=== PATIENT | female | born 1960 | race Caucasian/White ===

== ENCOUNTER → 2023-08-29 10:56 | Outpatient (REF) | payer OTHER, SELFPAY | LOC: MRI 3T 10:56 | PROVIDERS: ATTENDING PHYSICIAN Orthopaedic Surgery Hand Surgery; FAMILY PHYSICIAN Family Medicine | DX: S46.011A Strain of muscle(s) and tendon(s) of the rotator cuff of right shoulder, initial encounter (principal); M25.511 Pain in right shoulder; W19.XXXA Unspecified fall, initial encounter | CPT/HCPCS: 73221 ==

== ENCOUNTER → 2023-09-30 14:05 | Outpatient (REF) | payer OTHER, SELFPAY | LOC: HWRAD 14:05 | PROVIDERS: ATTENDING PHYSICIAN Obstetrics & Gynecology; FAMILY PHYSICIAN Family Medicine | DX: Z78.0 Asymptomatic menopausal state (principal) | CPT/HCPCS: 77080 ==

== ENCOUNTER 2024-01-25 23:27 | Inpatient (IN) | payer OTHER, SELFPAY ==
[2024-01-25 17:07] VITALS: BP 128/67
[2024-01-25 17:51] LABS: % Basophils 0.8 % (0-2); % Immature Granulocytes 0.5 % (0-0.5); % Lymphocytes 31.8 % (20.5-51.1); % Neutrophils 57.9 % (42.2-75.2); Absolute Basophils 0.1 10^3/uL (0-0.2); Absolute Eosinophils 0.1 10^3/uL (0-0.7); Absolute Lymphocytes 2.4 10^3/uL (1.2-3.4); Absolute Monocytes 0.6 10^3/uL (0.1-0.6); Absolute Neutrophils 4.4 10^3/uL (1.4-6.5); Hematocrit 37.5 % (37.0-47.0); Hemoglobin 12.3 g/dL (12.0-16.0); Mean Corp Hgb Conc. 32.8 g/dL (33.0-37.0); Mean Corpuscular Hgb 31.1 pg (27.0-31.0); Mean Corpuscular Volume 94.9 fL (81.0-99.0); Mean Platelet Volume 10.2 fL (7.4-10.4); Nucleated Red Blood Cells % 0 %; Platelet Count 192 10^3/uL (130-400); Red Blood Cell Count 3.95 10^6/uL (4.20-5.40); Red Cell Dist. Width 13.6 % (11.5-14.5); White Blood Cell Count 7.6 10^3/uL (4.8-10.8)
[2024-01-25 18:01] LABS: ALT (SGPT) 97 U/L (0-35); AST (SGOT) 93 U/L (14-36); Albumin 4.4 g/dl (3.5-5.0); Alkaline Phosphatase 63 U/L (38-126); Blood Urea Nitrogen 15 mg/dl (7-17); Calcium 9.2 mg/dl (8.4-10.2); Carbon Dioxide 22 mmol/L (22-30); Chloride 99 mmol/L (98-107); Glucose 124 mg/dl (70-99); Potassium 4.2 mmol/L (3.5-5.1); Sodium 136 mmol/L (135-145); Total Bilirubin 0.3 mg/dl (0.2-1.3); Total Protein 6.7 g/dl (6.3-8.2); eGFR > 60.00
--- NOTE | 2024-01-25 19:24 | ED.GENMED ---
History of Present Illness
General
Chief Complaint: Breathing Problem
Source: patient
Exam Limitations: none
Time Seen by Provider: 01/25/24 19:22
History of Present Illness
History of Present Illness:
63-year-old female complaining of shortness of breath with exertion since yesterday morning. Relatively minimal exertion will cause this. No chest pain. Developed some upper back pain earlier today. This is nonpleuritic in nature. Has some
general aches but no true infectious symptoms denying fever chills cough. No nausea or vomiting. Minimal symptoms at rest.
Past History
Past History
ED Past Medical History: CHF (Cardiomyopathy), GERD, HTN and Other (Hypertrophic cardiomyopathy)
ED Past Surgical History: Gynecological, Orthopedic and Other (Hernia repair)
Social History
Tobacco: Non-smoker
Alcohol: None
Drug: None
Personal:
Living: with family
Employment: Employed
Family History
Family History: Other (Nonsignificant); Negative Early CAD
Review of Systems
Review of Systems
All Other Systems: Not applicable
Constitutional: Denies fever or chills
Respiratory: Denies cough or hemoptysis
Cardiac: Denies chest pain
Phy Exam
Physical Exam
Physical Exam:
GENERAL: Alert and oriented in no apparent distress
EYE: Orbits normal.
NECK: Supple, no thyroid palpable
ENT: Pharynx without erythema
CARDIAC: Bradycardic and regular no murmur
LUNGS: No respiratory distress. No wheezing or rhonchi but a few rales in the bases
ABDOMEN: Soft, without focal tenderness or distention
NEUROLOGICAL: Alert and oriented , grossly non-focal
SKIN: Warm and dry, no rash or lesion, no discoloration, skin intact.
MUSCULOSKELETAL: No edema,no deformity.Good color
PSYCH: Normal and appropriate interaction.
Scores
Heart Failure Risk
Heart Failure Risk Score: Not Applicable
Course
Orders/Labs/Results
Orders:
Orders
01/25/24 17:10
EKG [Electrocardiogram (*1)] Urgent
Reason for Study: Shortness of Breath
01/25/24 17:11
EKG- Treatment ONCE
01/25/24 17:34
CMP [Comprehensive Metabolic Panel] Urgent
Complete Blood Count/With Diff Urgent
Creatine Phosphokinase Urgent
Comment: ADD ON
TSH Reflex To Free T4 Urgent
Comment: ADD ON
01/25/24 19:31
Add On- LAB Urgent
Tests Added?: probnp
01/25/24 19:32
Add On- LAB Urgent
Tests Added?: cpk. tsh reflex t4
CXR2 [CR Chest - 2 Views ] Urgent
Comment:
Reason For Exam: Short of breath with exertion
01/25/24 19:40
D-Dimer Urgent
NT-proBNP Urgent
Comment: ADD ON
Troponin I Urgent
Abnormal Lab Results
01/25/24 01/25/24
17:34 19:40
RBC 3.95 L 10^6/uL
(4.20-5.40)
MCH 31.1 H pg
(27.0-31.0)
MCHC 32.8 L g/dL
(33.0-37.0)
D-Dimer 0.51 H ug/mlFEU
(0.00-0.50)
Glucose 124 H mg/dl
(70-99)
AST 93 H U/L
(14-36)
ALT 97 H U/L
(0-35)
01/25/24 17:34
01/25/24 17:34
Vital Signs
Initial and Last Documented VS:
Initial Vital Signs
Temp Pulse Resp BP Pulse Ox
98.8 F 53 18 128/67 98
01/25/24 17:07 01/25/24 17:07 01/25/24 17:07 01/25/24 17:07 01/25/24 17:07
Last Documented Vital Signs
Temp Pulse Resp BP Pulse Ox
98.8 F 41 17 144/78 94
01/25/24 17:07 01/25/24 21:00 01/25/24 21:00 01/25/24 20:00 01/25/24 21:00
MDM/Problems Addressed
Differential Diagnosis Includes:
Patient with exertional shortness of breath over the last 2 days. Clinically in no distress. Doubt a primary lung issue. She is not having infectious issues does not have a cough congestion. No pleuritic pain or hemoptysis. We hope we will have
her do a D-dimer to rule out DVT/PE in a low risk patient. More concerned of a possible cardiac etiology. She did have a cardiac cath done in 2019 that showed nonobstructive disease. She has had a cardiogram was done in the show hypertrophic
cardiomyopathy. There could be a component of CHF to explain her symptoms. Troponin proBNP added. She does have some myalgias. CPK will be done. Chest x-ray. TSH.
*Radiology
Radiology exam reviewed: preliminary read by ED provider (Negative.) and radiology read reviewed (Cardiomegaly)
*Pulse Oximetry
Patient hypoxic: no
*EKG
Interpreted by ED Provider?: Yes
Interpretation: abnormal
Comparison EKG: changes noted
Heart Rate: 49
Rate: bradycardiac
Rhythm: sinus and junctional
Wilmer: normal axis
Interval: normal interval
QRS Pattern: left vent hypertrophy
Ischemia: T-wave inversion
*It Coordinator Interpretation
Rate: bradycardiac
Interpretation: abnormal
Heart Rate: 49
Rhythm: sinus and junctional
*Critical Care Note
Total Time (30-74mins, 75-104mins- exclusive of procedures): Not Applicable
Data Reviewed
Review of Other/Old Records Reveals: Labs, Records and Testing
Update Note
Update Note:
Patient describing significant dyspnea on exertion which is unusual for her in addition she described a near syncopal episode 2 nights ago. She remains very bradycardic and at times this is a junctional bradycardia in the 40s. Possibly a sick
sinus syndrome causing some of her symptoms along with her cardiomyopathy. Highly suspect a cardiac etiology for her symptoms. Her D-dimer is technically elevated at 0.51 but age-adjusted is normal with a very low suspicion. Will refer for
admission for further workup
ED Attending Note
-
Portions of this chart may have been created with voice recognition software.� Occasional wrong word or��sound alike� substitutions may have occurred due to the inherent limitations of voice recognition software.
Discharge Plan
Departure
Patient Disposition: Admit
Date of Disposition: 01/25/24
Time of Disposition: 20:59
Presentation/result/management discussed w/ accepting MD/DO: Hospitalist
Discharge Problem:
Dyspnea on exertion, Junctional bradycardia, History of hypertrophic cardiomyopathy
Prescriptions:
No Action
alprazolam 0.25 MG tablet
0.25 mg PO BIDPRN PRN (Reason: anxiety)
zolpidem 10 MG tablet
10 mg PO HSPRN PRN (Reason: insomnia)
Januvia 50 MG tablet
50 mg PO DAILY
aspirin 81 MG tablet,delayed release (DR/EC)
81 mg PO DAILY
levothyroxine 25 MCG tablet
25 mcg PO DAILY
pantoprazole 40 MG tablet,delayed release (DR/EC)
40 mg PO DAILY
diltiazem HCl 120 MG capsule,extended release 24hr
120 mg PO DAILY Qty: 30 11RF
spironolactone 25 MG tablet
25 mg PO DAILY 11 Days Qty: 30 0RF
citalopram 40 mg Tablet
40 mg PO DAILY
metoprolol succinate 200 mg Tablet Extended Release 24 Hr
200 mg PO DAILY
ibuprofen 200 mg Tablet
600 mg PO Q6HPRN PRN (Reason: mild pain)
Sinex Regular 0.5 % [place],Non-Aerosol
1 spray INTRANASAL DAILYPRN PRN (Reason: congestion)
Biotrue Hydration Boost 0.5 % Drops
1 drp ophthalmic (eye) DAILYPRN PRN (Reason: dry eyes)
Referrals:
Enmanuel Galeano MD [Family Provider] -
Interventions
Interventions:
*Risk Screen - Suicide Last Done: 01/25/24 17:07
*General Assessment Last Done: 01/25/24 17:07
*Neglect/Abuse Screening Last Done: 01/25/24 17:07
ED- Fall Risk Assessment Last Done: 01/25/24 19:29
*ED COVID-19 Vaccine History Last Done: 01/25/24 17:07
ED- Cardiac Assessment Last Done: 01/25/24 19:29
ED- Pulmonary Assessment Last Done: 01/25/24 19:29
Discharge Date and Time
Print Language: ANGUILLAN
[2024-01-25 19:40] VITALS: BP 156/80
[2024-01-25 19:48] LABS: Creatine Phosphokinase 48 U/L (30-135)
[2024-01-25 20:00] VITALS: BP 144/78
[2024-01-25 20:00] LABS: D-Dimer 0.51 ug/mlFEU (0.00-0.50)
[2024-01-25 20:09] LABS: NT-proBNP 1100 pg/ml; Troponin I < 0.012 ng/ml
[2024-01-25 20:19] LABS: TSH Reflex To Free T4 3.66 uIU/ml (0.47-4.68)
--- NOTE | 2024-01-25 22:07 | HPS.HSE ---
Addendum entered and electronically signed by Phuc Rodriguez DO 01/25/24 23:26:
Patient seen and examined independently. Agree with findings and plan as set forth by DOUGIE Clemente.
Patient is a 63y F with PMH significant for hypertrophic cardiomyopathy, hypertension and DM-II who presents to ED complaining of SOB / TURCIOS for the past several days. Patient denies any chest pain, palpitations, cough, fever / chills, etc. Only
recent med change was cessation of atorvastatin. She is on metoprolol and diltiazem chronically - but no recent dose changes, etc.
Ass:
SOB
Symptomatic Bradycardia
Hypertrophic Cardiomyopathy
Benign Hypertension
Non-Obstructive CAD
DM-II
GERD
Hypothyroidism
Alcohol Use Disorder
Plan:
Admit for further evaluation and treatment.
Hold chronotropic medications.
Monitor on tele overnight.
Cardiology evaluation for additional recommendations.
Update Echo.
Continue usual T4 supplementation.
Original Note:
Family Physician
-
Family Physician: Enmanuel Galeano
Chief Complaint
-
Shortness of breath, dyspnea on exertion, dizziness
History of Present Illness
63-year-old female complaining of shortness of breath and dyspnea on exertion for the last several days . She states the symptoms come on with minimal activity such as walking a short distance to the bathroom or getting dressed. She complains of
dizziness when standing. She reports she has been monitoring her blood pressure at home which has been stable. She has not missed any of her medications. And has been taking her spironolactone 25 mg daily. She has also noticed urinary frequency
over the past 2 days but denies any dysuria. She denies fever, chills, headache, cough, chest pain, palpitations, abdominal pain, nausea, vomiting, diarrhea.
She has past medical history of hypertrophic cardiomyopathy Dx 2019, nonobstructive CAD, GERD, HTN, DM2, anxiety, insomnia, hypothyroidism
Medical History
Past Medical History
Past Medical History: Reports Other
Additional Past Medical History:
Hypertrophic cardiomyopathy 2018
Nonobstructive CAD March 2018
GERD
HTN
DM 2
Anxiety
Hypothyroidism
GERD
Insomnia
Past Surgical History: Reports Other
Additional Past Surgical History:
hernia repair
Social History
Tobacco: Non-smoker
Alcohol: Daily (2 glasses of wine or 2 vodka tonics)
Drug: None
Personal: Single
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
Family History
Family History: Other (Mother age 91 [place], father history of CAD age 72 with postop staph infection from CABG)
Allergies / Home Medications
Allergies reflects when Allergies were last updated in [facility].
Home Medications with original date entered in [facility]
Allergy/Medication List:
Allergies
Allergy/AdvReac Type Severity Reaction Status Date / Time
No Known Allergies Allergy Verified 01/25/24 17:10
Home Medications
alprazolam 0.25 mg tablet 0.25 mg PO BIDPRN PRN anxiety 03/18/15
sitagliptin phosphate 50 mg tablet (Januvia) 50 mg PO DAILY 05/20/16
zolpidem 10 mg tablet 10 mg PO HSPRN PRN insomnia 05/20/16
aspirin 81 mg tablet,delayed release 81 mg PO DAILY 03/14/18
levothyroxine 25 mcg tablet 25 mcg PO DAILY 03/14/18
pantoprazole 40 mg tablet,delayed release 40 mg PO DAILY 03/14/18
diltiazem HCl 120 mg capsule,extended release 24 hr 120 mg PO DAILY ##30 03/16/18
spironolactone 25 mg tablet 25 mg PO DAILY 11 days #30 tabs 03/16/18
citalopram 40 mg tablet 40 mg PO DAILY 01/25/24
glycerin 0.5 % eye drops (Biotrue Hydration Boost) 1 drp ophthalmic (eye) DAILYPRN PRN dry eyes 01/25/24
ibuprofen 200 mg tablet 600 mg PO Q6HPRN PRN mild pain 01/25/24
metoprolol succinate 200 mg tablet,extended release 24 hr 200 mg PO DAILY 01/25/24
phenylephrine HCl 0.5 % nasal spray 1 spray intranasal DAILYPRN PRN congestion 01/25/24
Review of Systems
-
History Source: Patient
A 12 point ROS was completed and negative except as noted: Yes
Constitutional: Denies Fever, Fatigue or Chills
EENT: Denies Sore Throat or Runny Nose
Respiratory: Reports Trouble Breathing (TURCIOS); Denies Cough
Cardiac: Denies Chest Pain, Diaphoresis, Palpitations or Syncope
Abdomen/GI: Denies Abdominal Pain, Nausea, Vomiting, Diarrhea, Constipated, Bloody Stools or Black Stools
: Denies Dysuria, Frequency, Flank Pain, Incontinence, Difficulty Voiding or Urgency
Musculoskeletal: Denies Joint Pain or Edema
Skin: Denies Itching or Rash
Neurological: Denies Dizzy or Headache
Endocrine: Reports Polyuria; Denies Polydipsia
Hematologic/Lymphatic: Reports No Symptoms
Psych: Reports Calm
Physical Exam
Vital Signs
Vital Signs
Temp Pulse Resp BP Pulse Ox
98.8 F 41 17 144/78 94
01/25/24 17:07 01/25/24 21:00 01/25/24 21:00 01/25/24 20:00 01/25/24 21:00
Physical Exam
General: Comfortable and Conversant; No Pain or Fever
HEENT: NormoCephalic, Anicteric, PERRLA, [place] Conjunctivae and No Ptosis
Respiratory: Clear; No Wheezes, Rales or Rhonchi
Cardiac: S1/S2 and Bradycardia (Sinus bradycardia 42 bpm on monitor); No Murmur, Rub, Gallop, Peripheral Edema or JVD
Breast: Deferred by me
GI: Soft, Non Tender, Non Distended, Normal Bowel Sounds and No Hepatosplenomegaly
Rectal: Deferred by Provider
Genito-urinary: Deferred by me
Musculoskeletal: No Clubbing, No Cyanosis and No Edema
Skin: Warm and Dry; No Rash or Jaundice
Neuro: AO x 3, No Motor Deficits, Nonfocal/grossly intact, Cranial Nerves Intact and No Sensory Deficits; No Slurred Speech, Facial Droop, Tremors or Sedated
Psych: Calm
Laboratory Results
-
01/25/24 17:34
01/25/24 17:34
Laboratory Results
Total Bilirubin 0.3 mg/dl (0.2-1.3) 01/25/24 17:34
AST 93 U/L (14-36) H 01/25/24 17:34
ALT 97 U/L (0-35) H 01/25/24 17:34
Alkaline Phosphatase 63 U/L (38-126) 01/25/24 17:34
Troponin I < 0.012 ng/ml 01/25/24 19:40
Data Reviewed
-
Diagnostic Radiology: Report Reviewed by me
Lab Data: Labs Reviewed by me
Impression/Plan
-
Impression/plan:
Admit to telemetry
#Acute bradycardia�symptomatic with dizziness, shortness of breath
Heart rate 42 bpm on monitor
-Hold diltiazem 120 mg daily
-Consult cardiology to eval
Monitor in patient room sinus bradycardia with P waves 42 bpm, EKG poor quality in ER
-Repeat EKG in a.m.
#Acute dyspnea on exertion/dizziness concern for exacerbation Hypertrophic Cardiomyopathy
#Hypertrophic cardiomyopathy Dx 2019
BNP 1100 no signs of fluid overload
-Consult [facility] cardiology
-2D echo in a.m.
-Orthostatic vitals
-Hold metoprolol succinate
CXR: No acute cardiopulmonary process. Stable cardiomegaly
10/02/2021: EF 75%, hyperdynamic LVSF, no wall abnormality, concentric hypertrophy with septal thickness 1.6 cm posterior wall
#Alcohol abuse
Patient drinks 2 glasses of wine or 2 glasses of vodka tonic daily
-MSAs screen with protocol
-IV thiamine, IV folate
#HTN
BP 144/78
-Hold metoprolol succinate 200mg daily, spironolactone 25 mg daily, diltiazem
#Nonobstructive CAD March 2018
-Continue aspirin 81 mg daily hold metoprolol succinate 200 mg daily, Lipitor 40 mg was DC'd due to hyperglycemia 2 months ago by cardiology
-Hx cardiac cath March 2018 nonobstructive CAD preserved LV systolic function
#GERD
-Continue Protonix 40 mg daily
#DM 2
Accu-Cheks with SSI, check HgbA1c
Continue Januvia 50 mg daily
#Anxiety
-Continue alprazolam 0.25 mg twice daily as needed anxiety, citalopram 40 mg daily
#Hypothyroidism
-Continue levothyroxine 25 mcg p.o. daily
Check TSH with free T4 reflex
#Insomnia
-Continue Ambien 10 mg at bedtime as needed
DVT prophylaxis
Subcu heparin
Full code
[2024-01-25 23:26] VITALS: BP 149/78
[2024-01-25 23:29] VITALS: BP 149/78; BMI 34.2
[2024-01-26] VITALS (8 sets, daily range): BP systolic 144–174; BP diastolic 69–90; PULSE 73–75; BMI 32.2
[2024-01-26 01:24] LABS: INR 1.01; PT 13.8 Sec (11.4-14.6)
[2024-01-26 01:25] LABS: APTT 27.8 Sec (23.4-35.0)
[2024-01-26 01:26] LABS: Magnesium 1.6 mg/dl (1.6-2.3); Phosphorus 3.6 mg/dl (2.5-4.5)
--- NOTE | 2024-01-26 01:26 | PTCARENOTE ---
Pt arrived to unit via stretcher and ambulated to bed on 3W. Assessment and admission complete. Pt remains estefany with HR in 50s-60s, denies any symptoms and VS otherwise stable. Pt. states no further needs at this time, care ongoing.
[2024-01-26 02:09] LABS: GGTP 164 U/L (12-43)
[2024-01-26 02:11] LABS: Alcohol None Detected
[2024-01-26 02:15] LABS: B-Hydroxybutyrate 0.21 mmol/L (0.02-0.27)
[2024-01-26] MEDS: SYNTHROID 25 MCG PO (05:16)
[2024-01-26 06:40] LABS: % Basophils 0.6 % (0-2); % Eosinophils 0.9 % (0-6); % Immature Granulocytes 0.5 % (0-0.5); % Monocytes 11.1 % (1.7-9.3); % Neutrophils 57.9 % (42.2-75.2); Absolute Eosinophils 0.1 10^3/uL (0-0.7); Absolute Lymphocytes 1.9 10^3/uL (1.2-3.4); Absolute Monocytes 0.7 10^3/uL (0.1-0.6); Absolute Neutrophils 3.8 10^3/uL (1.4-6.5); Mean Corp Hgb Conc. 31.6 g/dL (33.0-37.0); Mean Corpuscular Hgb 30.3 pg (27.0-31.0); Mean Platelet Volume 10.2 fL (7.4-10.4); Nucleated Red Blood Cells % 0 %; Platelet Count 169 10^3/uL (130-400); Red Blood Cell Count 3.96 10^6/uL (4.20-5.40); Red Cell Dist. Width 13.7 % (11.5-14.5); White Blood Cell Count 6.6 10^3/uL (4.8-10.8)
[2024-01-26 07:20] LABS: ALT (SGPT) 80 U/L (0-35); AST (SGOT) 67 U/L (14-36); Albumin 3.9 g/dl (3.5-5.0); Alkaline Phosphatase 69 U/L (38-126); Blood Urea Nitrogen 12 mg/dl (7-17); Calcium 9.4 mg/dl (8.4-10.2); Carbon Dioxide 30 mmol/L (22-30); Chloride 104 mmol/L (98-107); Estimated Creatinine Clearance 83 ml/min; Glucose 106 mg/dl (70-99); HDL Cholesterol 50 mg/dl; LDL Cholesterol, Calculated 213 mg/dl; Potassium 4.9 mmol/L (3.5-5.1); Sodium 142 mmol/L (135-145); Total Bilirubin 0.7 mg/dl (0.2-1.3); Total Cholesterol 300 mg/dl (50-199); Total Protein 6.2 g/dl (6.3-8.2); Triglyceride 186 mg/dl (10-149); Very Low Density Lipoprotein 37 mg/dl (0-30); eGFR > 60.00
--- NOTE | 2024-01-26 07:29 | W.PN.HOSP.TC ---
Today's Communication/Plan
-
Resume Aldactone
Lasix 1x dose today
Assessment / Plan
Assessment / Plan
Physical Exam
General: Not in acute distress
HEENT: Normocephalic
Respiratory: Clear to auscultation bilaterally except for some mild wheezes
Cardiac: S1/S2 and Bradycardia. Systolic murmur.
GI: Soft, Non Tender, Non Distended, Normal Bowel Sounds
Musculoskeletal: No Cyanosis and No Edema
Skin: Warm and Dry
Neuro: AO x 3, No Motor Deficits, Nonfocal/grossly intact, Cranial Nerves Intact and No Sensory Deficits
Psych: Calm
Echocardiogram (as per commercial coordinator's report):
'CONCLUSIONS
Normal left ventricular chamber size. Hyperdynamic left ventricular systolic
function. LV ejection fraction is 78% by Westfall's method of discs. Normal
regional wall motion. Mild concentric left ventricular hypertrophy.
Intracavitary gradient of 19 mmHg at rest; up to 43 mmHg with Valsalva.
Normal right ventricular size and function.
Aortic sclerosis without stenosis.
Small pericardial effusion with evidence of hemodynamic compromise.
Compared to prior study dated 10/02/2021 which was directly reviewed, there is
no significant change with within limits of the study quality. In retrospect
pericardial effusion was present previously, but not well seen.'
Assessment/Plan
#Presentation with Dyspnea on Exertion, fatigue with exertion and a recent episode of near syncope
#Acute bradycardia�symptomatic with dizziness, shortness of breath
#Symptomatic Bradycardia
-Hold diltiazem 120 mg daily -- unlikely to restart as per cardiology
-Patient was taking Toprol XL 200 mg daily prior to admission, on hold currently, would like to restart at a lower dose and follow on tele.
-Consult cardiology to eval, appreciate cardiology
#Bloating
-proBNP elevated
-May consider abdominal ultrasound
#Acute HFpEF
#Acute dyspnea on exertion/dizziness concern for exacerbation Hypertrophic Cardiomyopathy
#Hypertrophic cardiomyopathy Dx 2018
-Appreciate cardiology
-Lasix x1 as per cardiology
-Echo results above
-Outpatient dose of spironolactone was held on admission for unclear reasons - restart Spironolactone
-Outpatient re-evaluation for Camzyos
-Hold metoprolol succinate, and restart as per cardiology
-Daily weights, I's and O's
#Alcohol abuse
Patient drinks 2 glasses of wine or 2 glasses of vodka tonic daily
-MSAS screen with protocol
-IV thiamine, IV folate
#Elevated LFTs
-Possibly from alcohol or fatty liver
-Consider resuming a statin
#Hypertension
BP 144/78
-Hold metoprolol succinate 200mg daily, diltiazem
-Consideration for resuming Toprol XL this admission
#Hyperlipidemia
#Nonobstructive CAD March 2018
-Continue aspirin 81 mg daily
-Beta humberto resumption as per cardiology
-Hx cardiac cath March 2018 nonobstructive CAD preserved LV systolic function
#GERD
-Continue Protonix 40 mg daily
#DM 2
Accu-Cheks with SSI, check HgbA1c
Continue Januvia 50 mg daily
#Anxiety
-Continue alprazolam 0.25 mg twice daily as needed anxiety, citalopram 40 mg daily
#Hypothyroidism
-Continue levothyroxine 25 mcg p.o. daily
-TSH is 3.66
#Alcohol Use Disorder
#Insomnia
-Continue Ambien 10 mg at bedtime as needed
DVT prophylaxis
Subcu heparin
Full code
Anticipated Discharge: 24 - 48 hours
Subjective/Interval History
-
Date of Service: January 26, 2024
Patient was seen and examined. She denied any chest pain, shortness of breath or any other complaints.
Objective Data
-
Labs:
Laboratory Results
01/26/24 01/26/24
01:07 06:24
WBC 6.6
Hgb 12.0
Hct 38.0
Plt Count 169
PT 13.8
INR 1.01
APTT 27.8
Sodium 142
Potassium 4.9
Chloride 104
Carbon Dioxide 30
BUN 12
Creatinine 0.7
Glucose 106 H
Calcium 9.4
Total Bilirubin 0.7
AST 67 H
ALT 80 H
Alkaline Phosphatase 69
Vital Signs:
Vital Signs
Temp Pulse Resp BP Pulse Ox
97.7 F 60 12 144/69 94
01/26/24 03:41 01/26/24 03:41 01/26/24 03:41 01/26/24 03:41 01/26/24 03:41
[2024-01-26 07:38] LABS: Glucose - Point of Care 109 mg/dl (70-99)
[2024-01-26] MEDS: JANUVIA 50 MG PO (08:15)
[2024-01-26] MEDS: FOLVITE 1 MG PO (08:15)
[2024-01-26] MEDS: PROTONIX 40 MG PO (08:15)
[2024-01-26] MEDS: CELEXA 40 MG PO (08:16)
[2024-01-26] MEDS: ASPIR LOW (ENTERIC COATED) 81 MG PO (08:17)
[2024-01-26] MEDS: THIAMINE INJECTION 200 MG IV ×2 (08:17→19:53)
[2024-01-26] MEDS: HEPARIN 5000 UNITS SC ×2 (08:20→19:53)
[2024-01-26 09:25] LABS: Urine Albumin Negative (Neg - Trace); Urine Bilirubin Negative (Negative); Urine Character Clear (Clear); Urine Color Yellow; Urine Glucose Negative (Negative); Urine Ketone Negative (Negative); Urine Leukocyte Trace (Negative); Urine Nitrite Negative (Negative); Urine Occult Blood Negative (Negative); Urine Specific Gravity 1.015 (<1.030); Urine Urobilinogen Negative (Neg - 1+)
--- NOTE | 2024-01-26 09:44 | CON.CAR ---
Addendum entered and electronically signed by Gene Dixon MD 01/26/24 14:43:
I saw and examined the patient.
The Hose Sprayer's note was reviewed and I agree with the note.
Comment: Briefly, 63-year-old woman with past medical history of hypertrophic cardiomyopathy who presents with worsening dyspnea on exertion, fatigue and lightheadedness found to be bradycardic on admission
Given her bradycardia, agree with holding AV gabriela blockers and observing heart rate on telemetry overnight
With known hypertrophic cardiomyopathy would benefit from metoprolol +/- diltiazem if heart rate is able to tolerate, can trial at a lower dose
Check echo to reassess LV wall thickness and intracavitary gradient
If she is unable to tolerate AV gabriela blockers we could tentatively refer back to [facility], previously seen there and deemed not a candidate for Camzyos at that time
Continue home spironolactone
Given IV Lasix x 1, would monitor response
Rest per Estefania Presley
Original Note:
Consultation
Consultation Request
Date/Time Consultation Requested: 01/25/24 at 2252
Date/Time Consultation Performed: 01/26/24 at 0840
Requesting Provider: Dr. Cervantes
Performing Provider: Dr. Dixon
Reason for Consultation: Fatigue and myalgias
Medical History
-
History of Present Illness:
Patient came to ER last night with TURCIOS, fatigue with exertion and a recent episode of near syncope and was admitted with symptomatic bradycardia and cardiology has been consulted. Patient states that she stood up from a seated position and had
an episode of near syncope 3 nights ago, this was unusual for her but she thought it might be related to recent cessation of atorvastatin and did not think much more of it. Then over the last 3 days she has had fatigue with any kind of exertion and
feels out of breath. Prior to this she was able to walk 1 to 2 miles a day 5 days a week without any symptoms. She has had increasing dyspnea on exertion, but no resting shortness of breath. No orthopnea or PND. She feels bloated. In ER her
ECG was concerning for heart rate of 40 bpm. proBNP elevated at 1100, but no active disease on CXR. Since admission her outpatient doses of Cardizem CD1 120 mg daily and Toprol XL 200 mg daily have been on hold and her heart rate has improved and
she feels a bit less fatigued, but continues with bloating.
PMH:
HOCM
no significant LVOT gradient by echo 06/2016
LVOT gradient 95 mmHg and mid-cavitary gradient with Valsalva 03/15/18
LVOT with Valsalva 50 mmHg
Nonobstructive CAD by cath 2018
HTN
Impaired glucose tolerance
ETOH use disorder
Past Medical History
Past Medical History: Other (in HPI)
Past Surgical History: Cardiac (Cardiac cath 03/15/2018) and
Social History
Tobacco: Former Smoker
Alcohol: Daily
Drug: None
Personal:
Living: With Family
Family History
Family History: CAD and Cancer
Allergies / Home Medications
Allergy/AdvReac Type Severity Reaction Status Date / Time
No Known Allergies Allergy Verified 01/25/24 17:10
�Medication �Instructions �Recorded �Confirmed �Type
alprazolam 0.25 mg tablet 0.25 mg PO BIDPRN PRN anxiety 03/18/15 01/25/24 History
sitagliptin phosphate 50 mg tablet 50 mg PO DAILY 05/20/16 01/25/24 History
(Januvia)
zolpidem 10 mg tablet 10 mg PO HSPRN PRN insomnia 05/20/16 01/25/24 History
aspirin 81 mg tablet,delayed 81 mg PO DAILY 03/14/18 01/25/24 History
release
levothyroxine 25 mcg tablet 25 mcg PO DAILY 03/14/18 01/25/24 History
pantoprazole 40 mg tablet,delayed 40 mg PO DAILY 03/14/18 01/25/24 History
release
diltiazem HCl 120 mg 120 mg PO DAILY ##30 01/10/19 11/20/24 Rx
capsule,extended release 24 hr
spironolactone 25 mg tablet 25 mg PO DAILY 11 days #30 tabs 03/16/18 01/25/24 Rx
citalopram 40 mg tablet 40 mg PO DAILY 01/25/24 01/25/24 History
glycerin 0.5 % eye drops (Biotrue 1 drp ophthalmic (eye) DAILYPRN 01/25/24 01/25/24 History
Hydration Boost) PRN dry eyes
ibuprofen 200 mg tablet 600 mg PO Q6HPRN PRN mild pain 01/25/24 01/25/24 History
metoprolol succinate 200 mg 200 mg PO DAILY 01/25/24 01/25/24 History
tablet,extended release 24 hr
phenylephrine HCl 0.5 % nasal spray 1 spray intranasal DAILYPRN PRN 01/25/24 01/25/24 History
congestion
Review of Systems
-
History Source: Patient
All other systems: Negative unless noted
Physical Exam
Vital Signs
Temp Pulse Resp BP Pulse Ox
98.8 F 60 16 159/82 96
01/26/24 08:31 01/26/24 08:31 01/26/24 08:31 01/26/24 08:31 01/26/24 08:31
GEN: NAD. AAOx3.
HEENT: EOMI, MMM
LUNGS: Slight expiratory wheeze. No rales. RA.
CV: Reg, S1/S2, 1/6 syst LSB
ABD: soft, BS+, NT, ND
EXT: No clubbing, cyanosis, lesions or edema B/L
NEURO: Gross non-focal
SKIN: Warm, dry and pink. No rash
Lab Results
01/26/24 06:24
01/26/24 06:24
Troponin I < 0.012 ng/ml 01/25/24 19:40
Oex-X-Sfsfeyxtula Pept 1100 pg/ml 01/25/24 19:40
Impression / Plan
-
PCP: Dr. Enmanuel Galeano
Cardiology: Dr. Bryant
Impression:
Admitted with TURCIOS, fatigue and bradycardia 01/25/24
Symptomatic bradycardia
Acute HFpEF
HOCM
no significant LVOT gradient by echo 06/2016
LVOT gradient 95 mmHg and mid-cavitary gradient with Valsalva 03/15/18
LVOT with Valsalva 50 mmHg
Nonobstructive CAD by cath 2018
HTN
Impaired glucose tolerance
ETOH use disorder
Elevated LFTs
Hyperlipidemia
Echo 06/21/16: EF 65-70%, no significant LVOT gradient at rest or with exertion, stage 1 diastolic dysfunction
Echo 03/15/18: EF 75% with moderate concentric LVH, LVOT gradient 20 mmHg with rest and 95 mmHg with Valsalva, mild MR
Echo 10/02/21: EF 75% with hyperdynamic LV function, normal regional wall motion, concentric hypertrophy with septal thickness of 1.6 cm and posterior wall thickness 1.5 cm, dynamic LVOT gradient 13 mmHg at rest increasing to 50 mmHg with Valsalva
maneuver, tissue Doppler e' is reduced but other supportive features of diastolic dysfunction are absent, no MR
Plan:
-Patient came to ER last night with TURCIOS, fatigue with exertion and a recent episode of near syncope and was admitted with symptomatic bradycardia and cardiology has been consulted. Patient states that she stood up from a seated position and had
an episode of near syncope 3 nights ago, this was unusual for her but she thought it might be related to recent cessation of atorvastatin and did not think much more of it. Then over the last 3 days she has had fatigue with any kind of exertion and
feels out of breath. Prior to this she was able to walk 1 to 2 miles a day 5 days a week without any symptoms. She has had increasing dyspnea on exertion, but no resting shortness of breath. No orthopnea or PND. She feels bloated. In ER her
ECG was concerning for heart rate of 40 bpm. proBNP elevated at 1100, but no active disease on CXR. Since admission her outpatient doses of Cardizem CD1 120 mg daily and Toprol XL 200 mg daily have been on hold and her heart rate has improved and
she feels a bit less fatigued, but continues with bloating.
-ECGs x3 since admission reviewed by me, patient with probably sinus bradycardia vs junctional rhythm and HR 40 on ECG last night. Tele now reviewed and looks like SR.
-Patient with h/o HOCM and was taking Toprol XL 200 mg daily prior to admission. Toprol XL on hold since admission, but would like to restart at a lower dose and follow on tele.
-Outpatient dose of Cardizem CD 120 mg daily can be held and unlikely to restart.
-Check echo to reassess gradient, most recent gradients outlined above.
-Of note the patient was previously evaluated by Dr. Orquidea patel at [facility] back in 10/24/2021 for consideration of Camzyos, but patient was felt to have symptoms to mild to warrant Camzyos treatment and also there was a mid cavitary obstruction on
echo at that time. Pending the patient's response to reinitiation of Toprol-XL therapy could consider another evaluation for Camzyos.
-Patient with bloating and elevated pro-BNP, will give a dose of Lasix 20 mg IV x1. Patient was not taking a loop diuretic prior to admission.
-Outpatient dose of spironolactone was held on admission for unclear reasons. Will restart now.
-Follow BP after meds restarted, might need to replaced Cardizem CD with another BP med to control HTN.
-Patient was previously on a regimen of Lasix and lisinopril, but these were stopped in favor of higher dose beta-humberto and CCB therapy when gradient was increased on echo back in 2019
-No indication for PPM at this point
-LDL 213 on labs. Patient stopped taking her atorvastatin 80 mg daily at the time of her 11/23/2023 office visit. At that time her AST was 147 and ALT was 81 by labs back on 10/04/2023. Labs repeated this admission today the AST is 67 and the ALT is
80. It does not appear that cessation of atorvastatin helped to improve her LFTs and they may be elevated for another reason such as EtOH use disorder. Will talk with patient about restarting statin, perhaps in the form of Crestor.
-Patient had nonobstructive CAD by last cath in 2019.
--- NOTE | 2024-01-26 10:00 | PTCARENOTE ---
pt in afib but asymptomatic. converted back to [facility]. Hospitalist and instructor ground services made aware. Care ongoing.
[2024-01-26] MEDS: ALDACTONE 25 MG PO (11:12)
[2024-01-26] MEDS: LASIX 20 MG IV (11:14)
[2024-01-26 11:21] LABS: Glucose - Point of Care 121 mg/dl (70-99)
[2024-01-26 11:55] LABS: Urine Squamous Cell >30 /LPF (Few)
[2024-01-26 11:56] LABS: Urine Amorphous Seen
[2024-01-26 11:58] LABS: Urine Bacteria Many (Negative); Urine Red Blood Cell 0-2 /HPF (0-2)
[2024-01-26 14:02] LABS: Glycohemoglobin (HgbA1c) 5.7 % (4.0-5.6)
[2024-01-26 16:31] LABS: Glucose - Point of Care 133 mg/dl (70-99)
--- NOTE | 2024-01-26 16:48 | CM ---
Received consult for ETOH/Substance abuse counseling. Attempted x2 to see patient however she was not in room. Did not call spouse as to sensitive nature of consult. Will attempt to see patient again.
[2024-01-26 18:12] LABS: Amphetamines Negative (Negative); Barbiturates Negative (Negative); Benzodiazepines Positive (Negative); Buprenorphine Negative (Negative); Cocaine Negative (Negative); Marijuana Positive (Negative); Methadone Negative (Negative); Methamphetamines Negative (Negative); Opiates Negative (Negative); Phencyclidine Negative (Negative); Tricyclic Antidepressants Negative (Negative)
[2024-01-26 18:31] LABS: Fentanyl, Urine Negative (Negative)
[2024-01-26] MEDS: AMBIEN 10 MG PO (19:58)
[2024-01-26 22:19] LABS: Glucose - Point of Care 121 mg/dl (70-99)
[2024-01-27 03:20] VITALS: BP 152/85
[2024-01-27] MEDS: SYNTHROID 25 MCG PO (05:58)
[2024-01-27 06:00] VITALS: BMI 32.2
[2024-01-27 07:55] LABS: % Basophils 0.8 % (0-2); % Eosinophils 0.8 % (0-6); % Immature Granulocytes 0.4 % (0-0.5); % Lymphocytes 43.1 % (20.5-51.1); % Monocytes 9.3 % (1.7-9.3); % Neutrophils 45.6 % (42.2-75.2); Absolute Monocytes 0.4 10^3/uL (0.1-0.6); Absolute Neutrophils 2.1 10^3/uL (1.4-6.5); Hematocrit 43.2 % (37.0-47.0); Hemoglobin 13.7 g/dL (12.0-16.0); Mean Corp Hgb Conc. 31.7 g/dL (33.0-37.0); Mean Corpuscular Hgb 30.3 pg (27.0-31.0); Mean Corpuscular Volume 95.6 fL (81.0-99.0); Mean Platelet Volume 10.5 fL (7.4-10.4); Nucleated Red Blood Cells % 0 %; Platelet Count 187 10^3/uL (130-400); Red Blood Cell Count 4.52 10^6/uL (4.20-5.40); Red Cell Dist. Width 13.6 % (11.5-14.5); White Blood Cell Count 4.7 10^3/uL (4.8-10.8)
[2024-01-27 08:15] LABS: ALT (SGPT) 89 U/L (0-35); AST (SGOT) 83 U/L (14-36); Albumin 4.7 g/dl (3.5-5.0); Alkaline Phosphatase 70 U/L (38-126); Blood Urea Nitrogen 11 mg/dl (7-17); Carbon Dioxide 30 mmol/L (22-30); Chloride 98 mmol/L (98-107); Estimated Creatinine Clearance 83 ml/min; Glucose 108 mg/dl (70-99); Potassium 4.6 mmol/L (3.5-5.1); Sodium 142 mmol/L (135-145); Total Bilirubin 0.7 mg/dl (0.2-1.3); Total Protein 7.3 g/dl (6.3-8.2); eGFR > 60.00
[2024-01-27 08:25] VITALS: BP 174/93
[2024-01-27 08:46] LABS: Glucose - Point of Care 115 mg/dl (70-99)
[2024-01-27] MEDS: ALDACTONE 25 MG PO (09:09)
[2024-01-27] MEDS: THIAMINE INJECTION 200 MG IV (09:10)
[2024-01-27] MEDS: ASPIR LOW (ENTERIC COATED) 81 MG PO (09:10)
[2024-01-27] MEDS: PROTONIX 40 MG PO (09:10)
[2024-01-27] MEDS: CELEXA 40 MG PO (09:10)
[2024-01-27] MEDS: HEPARIN 5000 UNITS SC (09:12)
[2024-01-27] MEDS: JANUVIA 50 MG PO (09:12)
[2024-01-27] MEDS: FOLVITE 1 MG PO (09:12)
[2024-01-27 11:00] VITALS: BP 151/94
[2024-01-27 11:34] LABS: Glucose - Point of Care 100 mg/dl (70-99)
--- NOTE | 2024-01-27 11:34 | CM ---
Patient seen bedside.
IA completed.
Patient lives with spouse in a multilevel home with 6 steps to enter.
Patient independent prior to admission.
Patient drives.
Recently retired.
Spouse will transport home.
IMM completed.
PCP; [facility]
Pharmay: [facility]
Plan: home no needs.
--- NOTE | 2024-01-27 12:27 | W.PN.CARDCBS ---
Addendum entered and electronically signed by Gene Dixon MD 01/27/24 17:58:
I saw and examined the patient on morning rounds.
The Flight Deck Officer's note was reviewed and I agree with the note.
Comment: Briefly, 63-year-old woman with past medical history of hypertrophic cardiomyopathy who presents with worsening dyspnea on exertion, fatigue and lightheadedness found to be bradycardic on admission
Given her bradycardia, metoprolol and diltiazem were held and heart rate has been running in the normal range today
Plan to discharge on lower dose of metoprolol, 50 mg daily
Would discontinue diltiazem
Echo here with hyperdynamic LV function but only mildly increased wall thickness, and intracavitary gradient up to 44 mmHg with Valsalva
As outpatient can consider referral back to [facility] for HCM, previously seen there and deemed not a candidate for Camzyos at that time
Reports worsening abdominal distention, possible this is related to fluid retention/CHF
Given IV Lasix x 1
Plan to discharge on low dose lasix to see if this improves her symptoms
Continue home spironolactone
Stable for discharge from my perspective
Rest per Mere Miller
Original Note:
Today's Communication / Plan
-
Will restart Toprol at lower dose 50 mg daily.
Continue Lasix 20 mg p.o. daily.
Follow BP
Impression / Plan
-
PCP: Dr. Enmanuel Galeano
Cardiology: Dr. Bryant
Impression:
Admitted with TURCIOS, fatigue and bradycardia 01/25/24
Symptomatic bradycardia
Acute HFpEF
HOCM
no significant LVOT gradient by echo 06/2016
LVOT gradient 95 mmHg and mid-cavitary gradient with Valsalva 03/15/18
LVOT with Valsalva 50 mmHg
Nonobstructive CAD by cath 2018
HTN
Impaired glucose tolerance
ETOH use disorder
Elevated LFTs
Hyperlipidemia
Echo 06/21/16: EF 65-70%, no significant LVOT gradient at rest or with exertion, stage 1 diastolic dysfunction
Echo 03/15/18: EF 75% with moderate concentric LVH, LVOT gradient 20 mmHg with rest and 95 mmHg with Valsalva, mild MR
Echo 10/02/21: EF 75% with hyperdynamic LV function, normal regional wall motion, concentric hypertrophy with septal thickness of 1.6 cm and posterior wall thickness 1.5 cm, dynamic LVOT gradient 13 mmHg at rest increasing to 50 mmHg with Valsalva
maneuver, tissue Doppler e' is reduced but other supportive features of diastolic dysfunction are absent, no MR
Echo 01/26/2024: EF 78%, mild concentric LVH, intracavitary gradient of 19 mmHg at rest, up to 43 mmHg with Valsalva. Aortic sclerosis without stenosis, small pericardial effusion without evidence of hemodynamic compromise.
Plan:
-Presented with near syncope and admitted with symptomatic bradycardia.
-Patient was taking Toprol 200 mg daily as outpatient, but has been on hold this admission.
-Heart rates improving on telemetry. Will resume Toprol 50 mg daily. Will continue to hold Cardizem.
-No indication for PPM at this point.
-Echo 01/26/2024 overall unchanged compared to prior. Known history of HOCM
-Of note the patient was previously evaluated by Dr. Orquidea Burnett at [facility] in 10/24/2021 for consideration of Camzyos, but patient was felt to have symptoms too mild to warrant Camzyos treatment and also there was a mid cavitary obstruction on
echo at that time. Pending the patient's response to reinitiation of Toprol-XL therapy could consider another evaluation for Camzyos.
-Given a single dose of IV Lasix 01/25. Will discharge on Lasix p.o. 20 mg daily.
-Continue spironolactone 25 mg daily.
-Statin has been on hold due to elevated LFTs. Consider resuming as outpatient.
-Patient had nonobstructive CAD by last cath in 2018.
-Will arrange follow-up.
HPI: Patient came to ER last night with TURCIOS, fatigue with exertion and a recent episode of near syncope and was admitted with symptomatic bradycardia and cardiology has been consulted. Patient states that she stood up from a seated position and
had an episode of near syncope 3 nights ago, this was unusual for her but she thought it might be related to recent cessation of atorvastatin and did not think much more of it. Then over the last 3 days she has had fatigue with any kind of exertion
and feels out of breath. Prior to this she was able to walk 1 to 2 miles a day 5 days a week without any symptoms. She has had increasing dyspnea on exertion, but no resting shortness of breath. No orthopnea or PND. She feels bloated. In ER
her ECG was concerning for heart rate of 40 bpm. proBNP elevated at 1100, but no active disease on CXR. Since admission her outpatient doses of Cardizem CD1 120 mg daily and Toprol XL 200 mg daily have been on hold and her heart rate has improved
and she feels a bit less fatigued, but continues with bloating.
Progress Note - Process Development Manager
Subjective
Date of Service: January 27, 2024
No dizziness
Objective
Labs:
01/27/24 06:50
01/27/24 06:50
Labs
Hgb 13.7 g/dL (12.0-16.0) 01/27/24 06:50
Hct 43.2 % (37.0-47.0) 01/27/24 06:50
Plt Count 187 10^3/uL (130-400) 01/27/24 06:50
PT 13.8 Sec (11.4-14.6) 01/26/24 01:07
INR 1.01 01/26/24 01:07
APTT 27.8 Sec (23.4-35.0) 01/26/24 01:07
Sodium 142 mmol/L (135-145) 01/27/24 06:50
Potassium 4.6 mmol/L (3.5-5.1) 01/27/24 06:50
BUN 11 mg/dl (7-17) 01/27/24 06:50
Creatinine 0.7 mg/dL (0.6-1.0) 01/27/24 06:50
Glucose 108 mg/dl (70-99) H 01/27/24 06:50
Troponins
01/25/24
19:40
Troponin I < 0.012
Vital Signs and I&O:
Vital Signs
Temp Pulse Resp BP Pulse Ox
98.3 F 87 16 151/94 96
01/27/24 11:00 01/27/24 11:00 01/27/24 11:00 01/27/24 11:00 01/27/24 11:00
Vital Signs
Temp Pulse Resp BP Pulse Ox
98.3 F 87 16 151/94 96
01/27/24 11:00 01/27/24 11:00 01/27/24 11:00 01/27/24 11:00 01/27/24 11:00
Intake & Output
01/25/24 01/26/24 01/27/24 01/28/24
06:59 06:59 06:59 06:59
Intake Total 1200 / 1200
Balance 1200 / 1200
Physical Exam
Physical Exam
GEN: NAD. AAOx3.
HEENT: EOMI, MMM
LUNGS: CTA b/l, no wheezes/rales
CV: Reg, S1/S2, 1/6 syst LSB
EXT: No clubbing, cyanosis, lesions or edema B/L
NEURO: Gross non-focal
SKIN: Warm, dry and pink. No rash
[2024-01-27] MEDS: TOPROL XL 25 MG PO (13:58)
--- NOTE | 2024-01-27 14:48 | CON.GS ---
Addendum entered and electronically signed by Ry Robles MD 01/27/24 17:06:
Patient seen and examined. Agree with assessment plan as documented below.
Patient is a 63 yo F with a PMH of obesity, GERD, HTN, HLD, CHF, HOCM, NIDDM, hypothyroid, s/p , s/p tubal ligation, and s/p LIH as a child. She was admitted to with symptoms of TURCIOS. During the course of her management she was found to
have elevated LFTs which prompted a abdominal ultrasound which demonstrated mild wall thickening without any evidence of cholelithiasis, pericholecystic edema, and a negative sonographic Kemp sign. She reports some mild lower abdominal bloating.
She denies any upper abdominal pain or discomfort. No nausea or vomiting. She denies any jaundice, pale stools, or tea colored urine. No reflux symptoms.
Gen: NAD
Abd: soft, NT/ND, non-peritoneal, negative Kemp's sign
Labs and ultrasound reviewed.
Patient is a 63 yo F p/w TURCIOS
Elevated LFTs most likely related to fatty liver disease. Her LFTs have been elevated since 2017. She also reports drinking alcohol daily and may have a component of alcoholic hepatitis. Recommend outpatient evaluation with GI. She does get MRI
surveillance is for a pancreatic cyst. No clinical evidence of biliary colic or cholecystitis. No stones visualized on ultrasound. Gallbladder wall thickening was previously seen on a ultrasound and is mild at best. No clinical indication for
further workup and management of her gallbladder. All questions answered.
-- No role for general surgery management
Original Note:
Medical History
-
Chief Complaint: bloating
History of Present Illness:
Ms Miller is a 63 yo female with a history of hypertrophic CM who was admitted for TURCIOS with near syncope and is being followed by cardiology for symptomatic bradycardia. She has noted complaints of abdominal bloating as well but denies abdominal
pain. She feels the bloating is gradually improving. She denies nausea or vomiting. She reports that she is passing flatus and stooling normally. She denies abdominal discomfort or dyspepsia with eating meals. On exam, her abdomen is soft,
non-tender and non-distended.
Past Medical History
Past Medical History: CHF (hfpef), GERD, HTN, Hypercholesterolemia, Hypothyroidism, NIDDM and Other (HOCM, obesity, pancreatic cyst followed as OP with MRI surveillance (last MRI 11/15/22))
Past Surgical History: , Gynecological (tubal ligation) and Hernia Repair (left inguinal as an )
Social History
Tobacco: Non-Smoker
Alcohol: Daily
Drug: Marijuana
Family History
Family History: Reviewed & Not Pertinent
Allergies / Home Medications
Allergy/AdvReac Type Severity Reaction Status Date / Time
No Known Allergies Allergy Verified 01/25/24 17:10
�Medication �Instructions �Recorded �Confirmed �Type
alprazolam 0.25 mg tablet 0.25 mg PO BIDPRN PRN anxiety 03/18/15 01/25/24 History
sitagliptin phosphate 50 mg tablet 50 mg PO DAILY Diabetes 05/20/16 01/25/24 History
(Januvia)
zolpidem 10 mg tablet 10 mg PO HSPRN PRN insomnia 05/20/16 01/25/24 History
aspirin 81 mg tablet,delayed 81 mg PO DAILY Blood Clot 03/14/18 01/25/24 History
release Prevention/Tx
levothyroxine 25 mcg tablet 25 mcg PO DAILY Thyroid 03/14/18 01/25/24 History
pantoprazole 40 mg tablet,delayed 40 mg PO DAILY Gastrointestinal 03/14/18 01/25/24 History
release Issue
diltiazem HCl 120 mg 120 mg PO DAILY ##30 03/16/18 01/25/24 Rx
capsule,extended release 24 hr
spironolactone 25 mg tablet 25 mg PO DAILY 11 days #30 tabs 03/16/18 01/25/24 Rx
citalopram 40 mg tablet 40 mg PO DAILY Depression 01/25/24 01/25/24 History
glycerin 0.5 % eye drops (Biotrue 1 drp ophthalmic (eye) DAILYPRN 01/25/24 01/25/24 History
Hydration Boost) PRN dry eyes
ibuprofen 200 mg tablet 600 mg PO Q6HPRN PRN mild pain 01/25/24 01/25/24 History
metoprolol succinate 200 mg 200 mg PO DAILY Blood Pressure 01/25/24 01/25/24 History
tablet,extended release 24 hr
phenylephrine HCl 0.5 % nasal spray 1 spray intranasal DAILYPRN PRN 01/25/24 01/25/24 History
congestion
Review of Systems
-
History Source: Patient
All other systems: Negative unless noted
A 10 point review of systems was completed, and was negative except as per HPI.
Physical Exam
Vital Signs
Temp Pulse Resp BP Pulse Ox
98.3 F 87 16 151/97 96
01/27/24 11:00 01/27/24 13:58 01/27/24 11:00 01/27/24 13:58 01/27/24 11:00
01/26/24 01/27/24 01/28/24
06:59 06:59 06:59
Actual Weight 83.688 kg 83.574 kg
Body Mass Index (BMI) 32.2
Lab Results
01/27/24 06:50
01/27/24 06:50
WBC 4.7 10^3/uL (4.8-10.8) L 01/27/24 06:50
Hgb 13.7 g/dL (12.0-16.0) 01/27/24 06:50
Hct 43.2 % (37.0-47.0) 01/27/24 06:50
Plt Count 187 10^3/uL (130-400) 01/27/24 06:50
Abs Immat Gran (auto) 0.0 10^3/uL (0-0.05) 01/27/24 06:50
Neutrophils % 45.6 % (42.2-75.2) 01/27/24 06:50
Physical Exam
General: Well Developed and Well Nourished
HEENT: Moist Mucous Membranes
Respiratory: Non Labored Respirations
GI: Soft, Non Tender, Non Distended and Obese
Skin: Warm and Dry
Neuro: Awake, Alert and AO x 3
Psych: Calm
Data Reviewed
-
Ultrasound: Image Personally Visualized and interpreted (Gallbladder wall thickening with no cholelithiasis with hepatomegaly and hepatic steatosis on US from 01/26/24 and 10/14/23)
Labs: Labs Reviewed by me, Discussed with Physician and Discussed with Patient
Old Records: Reviewed
Assessment / Plan
-
63 yo female admitted with symptomatic bradycardia and seen today in consult for symptoms of bloating and abnormal finding of gallbladder wall thickening on US without noted cholelithiasis, Kemp's sign negative. Review of prior US from 10/13/22 with
similar findings of gallbladder wall thickening. She is without pain or tenderness in the abdomen even to deep palpation. She denies symptoms of biliary colic now or in the past. No leukocytosis. Bilirubin normal with only mildly elevated
transaminases (mildly elevated since 2017). Doubt acute gallbladder pathology. AFVSS.
--No surgical intervention planned
--Diet as per primary team
[2024-01-27 15:00] VITALS: BP 174/87
[2024-01-27 17:01] LABS: Glucose - Point of Care 110 mg/dl (70-99)
--- NOTE | 2024-01-27 17:03 | W.PN.HOSP.TC ---
Addendum entered and electronically signed by Bravo Cervantes MD 01/27/24 17:18:
I spoke via [place] [employer] with asphalt heater tender Dr. Gene Dixon today, and he said that patient is good for discharge today.
Original Note:
Today's Communication/Plan
-
Discharge today
Assessment / Plan
Assessment / Plan
Physical Exam
General: Not in acute distress
HEENT: Normocephalic
Respiratory: Clear to auscultation bilaterally except for some mild wheezes
Cardiac: S1/S2 and Bradycardia. Systolic murmur.
GI: Soft, Non Tender, Non Distended, Normal Bowel Sounds
Musculoskeletal: No Cyanosis and No Edema
Skin: Warm and Dry
Neuro: AO x 3, No Motor Deficits, Nonfocal/grossly intact, Cranial Nerves Intact and No Sensory Deficits
Psych: Calm
Echocardiogram (as per asphalt heater tender's report):
'CONCLUSIONS
Normal left ventricular chamber size. Hyperdynamic left ventricular systolic
function. LV ejection fraction is 78% by Westfall's method of discs. Normal
regional wall motion. Mild concentric left ventricular hypertrophy.
Intracavitary gradient of 19 mmHg at rest; up to 43 mmHg with Valsalva.
Normal right ventricular size and function.
Aortic sclerosis without stenosis.
Small pericardial effusion with evidence of hemodynamic compromise.
Compared to prior study dated 10/02/2021 which was directly reviewed, there is
no significant change with within limits of the study quality. In retrospect
pericardial effusion was present previously, but not well seen.'
Assessment/Plan
#Presentation with Dyspnea on Exertion, fatigue with exertion and a recent episode of near syncope
#Acute bradycardia�symptomatic with dizziness, shortness of breath
#Symptomatic Bradycardia
-Hold diltiazem 120 mg daily -- unlikely to restart as per cardiology
-Patient was taking Toprol XL 200 mg daily prior to admission, on hold currently, would like to restart at a lower dose and follow on tele.
-Consult cardiology to [facility]
#Bloating - IMPROVED
#Gallbladder Thickening on Ultrasound
-proBNP elevated
-Acute gallbladder pathology/acute cholecystitis is highly doubtful
-I spoke with General Surgery team today, and they said okay to discharge patient without any treatment for cholecystitis since it is very unlikely
#Acute HFpEF
#Acute dyspnea on exertion/dizziness concern for exacerbation Hypertrophic Cardiomyopathy
#Hypertrophic cardiomyopathy Dx 2018
-Appreciate cardiology
-Continue Lasix 20 mg p.o. daily
-Echo results above
-Outpatient dose of spironolactone was held on admission for unclear reasons - continue Spironolactone 25 mg PO daily
-Outpatient re-evaluation for Camzyos
-Restart Toprol at lower dose 50 mg daily
-Daily weights, I's and O's
#Alcohol abuse
-Patient drinks 2 glasses of wine or 2 glasses of vodka tonic daily
-Last drink was at least 7 days ago
-MSAS screen with protocol
-Continue thiamine
-Continue Folate
#Elevated LFTs
-Possibly from alcohol or fatty liver
-Consider resuming a statin outpatient
#Hypertension
-Resume Toprol XL
#Hyperlipidemia
#Nonobstructive CAD March 2018
-Continue aspirin 81 mg daily
-Beta humberto resumption as per cardiology
-History of cardiac cath March 2018 nonobstructive CAD preserved LV systolic function
#GERD
-Continue Protonix 40 mg daily
#DM 2
Accu-Cheks with SSI
Continue Januvia 50 mg daily
#Anxiety
-Continue alprazolam 0.25 mg twice daily as needed anxiety, citalopram 40 mg daily
#Hypothyroidism
-Continue levothyroxine 25 mcg p.o. daily
-TSH is 3.66
#Alcohol Use Disorder
-Patient has cut down drinking significantly since retiring
-last drink was more than 1 week ago per patient
#Insomnia
-Continue Ambien 10 mg at bedtime as needed
DVT prophylaxis
Subcu heparin
Full code
More than 30 minutes spent in discharge including
Final examination of the patient
Summarizing hospital stay
Instructions for continuing care to all relevant caregivers
Preparation of discharge records, prescriptions, and referral forms
Total time spent (in minutes): 36
Anticipated Discharge: Today
Subjective/Interval History
-
Date of Service: January 27, 2024
Patient was seen and examined. She reported her bloating has improved, and denied chest pain or SOB.
Objective Data
-
Labs:
Laboratory Results
01/27/24
06:50
WBC 4.7 L
Hgb 13.7
Hct 43.2
Plt Count 187
Sodium 142
Potassium 4.6
Chloride 98
Carbon Dioxide 30
BUN 11
Creatinine 0.7
Glucose 108 H
Calcium 10.0
Total Bilirubin 0.7
AST 83 H
ALT 89 H
Alkaline Phosphatase 70
Vital Signs:
Vital Signs
Temp Pulse Resp BP Pulse Ox
98.1 F 89 16 174/87 95
01/27/24 15:00 01/27/24 15:00 01/27/24 15:00 01/27/24 15:00 01/27/24 15:00
I&O
01/26/24 01/27/24 01/28/24
06:59 06:59 06:59
Intake Total 1200 / 1200
Balance 1200 / 1200
--- NOTE | 2024-01-27 17:33 | W.DCSUMMARY ---
Discharge Summary
Discharge Data
Date of Admission: 01/25/24
Date of Discharge: 01/27/24
Total time spent discharging patient (in min): 36
-
Pending Results: No
Hospital Course
63 y/o female with past medical history significant for hypertrophic cardiomyopathy, hypertension and Type 2 Diabetes Mellitus, who presented complaining of near syncope, dyspnea on exertion for the several days prior to presentation, as well as
bloating. Patient was admitted with symptomatic bradycardia and her home beta humberto and calcium channel humberto were held. Cardiology was consulted. Echocardiogram was done, and as per cardiology, it showed:
'CONCLUSIONS
Normal left ventricular chamber size. Hyperdynamic left ventricular systolic
function. LV ejection fraction is 78% by Westfall's method of discs. Normal
regional wall motion. Mild concentric left ventricular hypertrophy.
Intracavitary gradient of 19 mmHg at rest; up to 43 mmHg with Valsalva.
Normal right ventricular size and function.
Aortic sclerosis without stenosis.
Small pericardial effusion without evidence of hemodynamic compromise.
Compared to prior study dated 10/02/2021 which was directly reviewed, there is
no significant change with within limits of the study quality. In retrospect
pericardial effusion was present previously, but not well seen.'
Patient received some Lasix for acute heart failure with preserved ejection fraction. It was found that patient was not taking her outpatient Spironolactone for unclear reasons and Spironolactone was resumed. Patient was resumed on a lower dose of
Toprol XL 50 mg daily, and there was no indication for a pacemaker, patient's heart rate and symptoms improved.
It was decided that pending the patient's response to reinitiation of Toprol-XL therapy, could consider another evaluation for Camzyos outpatient.
Because of her bloating, patient had an abdominal ultrasound which showed mild wall thickening without any evidence of cholelithiasis, pericholecystic edema, and a negative sonographic Kemp sign, general surgery was consulted and they mentioned
that there was no clinical evidence of biliary colic or cholecystitis; patient would need to follow-up with gastroenterology outpatient.
Discharge Plan
-
Patient Disposition: Home (Routine Discharge)
Discharge Diagnosis/Procedures: #Presentation with Dyspnea on Exertion, fatigue with exertion and a recent episode of near syncope
#Acute bradycardia�symptomatic with dizziness, shortness of breath
#Symptomatic Bradycardia
#Bloating - IMPROVED
#Gallbladder Thickening on Ultrasound
#Acute HFpEF
#Acute dyspnea on exertion/dizziness concern for exacerbation Hypertrophic Cardiomyopathy
#Hypertrophic cardiomyopathy
#Alcohol abuse
#Elevated Hepatic Transaminases
#Hypertension
#Hyperlipidemia
#Nonobstructive Coronary Artery Disease March 2018
#Gastroesophageal Reflux Disease
#Type 2 Diabetes Mellitus
#Anxiety
#Hypothyroidism
#Alcohol Use Disorder
#Insomnia
Abdominal Ultrasound (as per radiologist's report):
'IMPRESSION:
Gallbladder wall thickening, nonspecific. Finding could be reactive or potentially secondary to acalculus cholecystitis in the appropriate clinical setting. No cholelithiasis or bile duct dilatation. Hepatomegaly and hepatic steatosis. '
Echocardiogram Results (as per cnc wood lathe operator's report):
'CONCLUSIONS
Normal left ventricular chamber size. Hyperdynamic left ventricular systolic
function. LV ejection fraction is 78% by Westfall's method of discs. Normal
regional wall motion. Mild concentric left ventricular hypertrophy.
Intracavitary gradient of 19 mmHg at rest; up to 43 mmHg with Valsalva.
Normal right ventricular size and function.
Aortic sclerosis without stenosis.
Small pericardial effusion without evidence of hemodynamic compromise.
Compared to prior study dated 10/02/2021 which was directly reviewed, there is
no significant change with within limits of the study quality. In retrospect
pericardial effusion was present previously, but not well seen.'
Condition: Good
Diet: Low Fat, Low Cholesterol, Low Sodium and Diabetic, Carb Controlled
Activity: As tolerated
Specialty Instructions: Weigh Daily- Call MD for wt gain/loss 3 lbs overnight/5 lbs in 1 week
Activity Restrictions/Additional Instructions:
Call your primary care provider's office to have your CBC, BMP and Magnesium checked within 1 week's time through their office.
Consider resuming your statin outpatient -- discussed with your outpatient providers.
Referrals:
Fatmata Hayward PA-C [Specified Professional Personl] - 01/31/24 8:20 am (You have a follow-up visit with Dr. Bryant's PAFatmata, at the [facility]. Please call with questions.)
Enmanuel Galeano MD [Family Provider] - in less than 1 week
Enrique Carter MD [Active] - in four to six weeks (Gallbladder Wall Thickening on Abdominal Ultrasound; Elevated AST and ALT.)
Additional Discharge Medication Instructions: Metoprolol Succinate has been reduced to 50 mg daily.
Furosemide, Folic Acid, and Thiamine are new medications.
Diltiazem has been stopped.
Prescriptions:
New
folic acid 1 mg Tablet
1 mg PO DAILY Qty: 7 0RF
furosemide 20 mg Tablet
20 mg PO DAILY Qty: 30 1RF
thiamine HCl (vitamin B1) 100 mg Tablet
100 mg PO DAILY Qty: 14 0RF
metoprolol succinate 50 mg tablet extended release 24 hr
50 mg PO DAILY Qty: 30 1RF
Continued
alprazolam 0.25 MG tablet
0.25 mg PO BIDPRN PRN (Reason: anxiety)
zolpidem 10 MG tablet
10 mg PO HSPRN PRN (Reason: insomnia)
Januvia 50 MG tablet
50 mg PO DAILY
aspirin 81 MG tablet,delayed release (DR/EC)
81 mg PO DAILY
levothyroxine 25 MCG tablet
25 mcg PO DAILY
pantoprazole 40 MG tablet,delayed release (DR/EC)
40 mg PO DAILY
citalopram 40 mg Tablet
40 mg PO DAILY
phenylephrine HCl 0.5 % Arrey,Non-Aerosol
1 spray INTRANASAL DAILYPRN PRN (Reason: congestion)
Biotrue Hydration Boost 0.5 % Drops
1 drp ophthalmic (eye) DAILYPRN PRN (Reason: dry eyes)
spironolactone 25 MG tablet
25 mg PO DAILY 11 Days Qty: 30 0RF
Discontinued
diltiazem HCl 120 MG capsule,extended release 24hr
120 mg PO DAILY Qty: 30 11RF
metoprolol succinate 200 mg Tablet Extended Release 24 Hr
200 mg PO DAILY
ibuprofen 200 mg Tablet
600 mg PO Q6HPRN PRN (Reason: mild pain)
Discharge Orders:
Discharge Patient (As Directed); Ordered 01/27/24
Ordered By: Bravo Cervantes
Discharge Date and Time
Discharge Date/Time: 01/27/24 17:59
Print Language: CANADIAN
--- NOTE | 2024-01-27 17:43 | PTCARENOTE ---
pt asking for D/C attending consulted surgery. No new surgical orders. D/C obtained from attending. pt refused pnumovac and flu vac.
== END 2024-01-27 17:59 | disposition home or self-care (01) | DRG 314 ==
LOC: 3 WEST ACU 23:27
PROVIDERS: Clinical Nurse Specialist Family Health; Emergency Medicine; ADMITTING PHYSICIAN Hospitalist; ATTENDING PHYSICIAN Hospitalist; CONSULT PHYSICIAN Internal Medicine Cardiovascular Disease; CONSULT PHYSICIAN Surgery; EMERGENCY PHYSICIAN Emergency Medicine; FAMILY PHYSICIAN Family Medicine
DX: I42.1 Obstructive hypertrophic cardiomyopathy (principal); I50.31 Acute diastolic (congestive) heart failure; I31.39 Other pericardial effusion (noninflammatory); I70.0 Atherosclerosis of aorta; F10.10 Alcohol abuse, uncomplicated; E78.5 Hyperlipidemia, unspecified; Z79.82 Long term (current) use of aspirin; K21.9 Gastro-esophageal reflux disease without esophagitis; E11.9 Type 2 diabetes mellitus without complications; F41.9 Anxiety disorder, unspecified; E03.9 Hypothyroidism, unspecified; I11.0 Hypertensive heart disease with heart failure
CPT/HCPCS: 71046; 76700; 80053; 80061; 80306; 80307; 81003; 81015; 82010; 82077; 82550; 82962; 82977; 83036; 83735; 83880; 84100; 84443; 84484; 85025; 85379; 85610; 85730; 93005; 93306; 99285; Q9950

== ENCOUNTER → 2025-01-30 15:11 | Outpatient (REF) | payer OTHER, SELFPAY | LOC: MRI 3T 15:11 | PROVIDERS: ATTENDING PHYSICIAN Internal Medicine Gastroenterology; FAMILY PHYSICIAN Family Medicine | DX: K76.0 Fatty (change of) liver, not elsewhere classified (principal) | CPT/HCPCS: 74183; 76391; A9575 ==

== ENCOUNTER → 2025-02-27 07:15 | Outpatient (REF) | payer OTHER, SELFPAY | LOC: MRI 3T 07:15 | PROVIDERS: ATTENDING PHYSICIAN Orthopaedic Surgery Hand Surgery; FAMILY PHYSICIAN Family Medicine | DX: M75.122 Complete rotator cuff tear or rupture of left shoulder, not specified as traumatic (principal); M75.42 Impingement syndrome of left shoulder | CPT/HCPCS: 73221 ==